=== PATIENT | male | born 1985 | race African-American/Black ===

== ENCOUNTER 2018-10-10 13:26 | Emergency (ER) | payer BC ==
[2018-10-10] MEDS ORDERED: KETOROLAC 30 MG/ML INJ ONE (14:39)
--- NOTE | 2018-10-10 15:04 | RAD REPORT ---
EXAM DESCRIPTION: USExtremcody Venous Uni Ltd10/10/2018 2:54 pm CLINICAL HISTORY: left leg swelling. COMPARISON: None. FINDINGS: Left common femoral, superficial femoral, popliteal and posterior tibial veins are compre ssible and demonstrate augmentation. Doppler demonstrates good flow. 3 x 0.5 centimeter Ovalles's cyst IMPRESSION: No evidence of deep venous thrombosis involving the left lower extremity.
--- NOTE | 2018-10-10 15:17 | RAD REPORT ---
EXAM DESCRIPTION: RAD - Knee Left 3 View - 10/10/2018 3:02 pm CLINICAL HISTORY: Left knee pain status post injury FINDINGS: Postsurgical changes of an ACL repair No acute fracture or dislocation Moderate to large joint effusion is present
[2018-10-10] MEDS ORDERED: HYDROCODONE/APAP 5/325 MG TAB ONE (15:36)
--- NOTE | 2018-10-10 15:49 | ER ---
Nurse's Notes [facility] Name: Beto Nava Age: 32 yrs Sex: Male : 1985 Arrival Date: 10/10/2018 Time: 13:29 Bed 23 Private MD: None, None Diagnosis: Internal derangement of knee;Synovial cyst of popliteal space [Ovalles], left knee Presentation: 10/10 13:43 Presenting complaint: Patient states: hx of torn ACL in left knee, re-injured knee on iw Wednesday while playing softball, left knee swollen and can't bend knee. Transition of care: patient was not received from another setting of care. Onset of symptoms was October 08, 2018. Risk Assessment: Do you want to hurt yourself or someone else? Patient reports no desire to harm self or others. Initial Sepsis Screen: Does the patient meet any 2 criteria? No. Patient's initial sepsis screen is negative. Does the patient have a suspected source of infection? No. Patient's initial sepsis screen is negative. Care prior to arrival: None. 13:43 Method Of Arrival: Wheelchair iw 13:43 Acuity: LISA 4 iw Triage Assessment: 13:58 General: Appears in no apparent distress. comfortable, Behavior is calm, cooperative, ca1 appropriate for age. Injury Description:. Historical: - Allergies: 13:46 No Known Allergies; iw - Home Meds: 13:46 None [Active]; iw - PMHx: 13:46 None; iw - PSHx: 13:46 Knee surgery; iw - Immunization history:: Adult Immunizations not up to date. - Social history:: Smoking status: Patient uses tobacco products, smokes one-half pack cigarettes per day. - Ebola Screening: : Patient negative for fever greater than or equal to 101.5 degrees Fahrenheit, and additional compatible Ebola Virus Disease symptoms Patient denies exposure to infectious person Patient denies travel to an Ebola-affected area in the 21 days before illness onset No symptoms or risks identified at this time. Screenin:55 Abuse screen: Denies threats or abuse. Denies injuries from another. Nutritional ca1 screening: No deficits noted. Tuberculosis screening: No symptoms or risk factors identified. Fall Risk None identified. Assessment: 13:55 General: Appears in no apparent distress. comfortable, Behavior is calm, cooperative, ca1 appropriate for age. Pain: Complains of pain in left knee Pain does not radiate. Pain currently is 10 out of 10 on a pain scale. Pain began 2-3 days ago. Is continuous, Aggravated by increased activity, repositioning, weight bearing. Neuro: Level of Consciousness is awake, alert, obeys commands, Oriented to person, place, time, situation. Respiratory: Airway is patent Respiratory effort is even, unlabored, Respiratory pattern is regular, symmetrical, Breath sounds are clear bilaterally. Derm: Skin is intact, is healthy with good turgor, Skin is pink, warm \T\ dry. normal. Musculoskeletal: Circulation, motion, and sensation intact. Capillary refill < 3 seconds, Range of motion: limited in left knee. 14:50 Reassessment: Patient appears in no apparent distress at this time. Patient and/or ca1 family updated on plan of care and expected duration. Pain level reassessed. Patient is alert, oriented x 3, equal unlabored respirations, skin warm/dry/pink. 15:50 Reassessment: Patient appears in no apparent distress at this time. Patient is alert, ca1 oriented x 3, equal unlabored respirations, skin warm/dry/pink. 16:15 Reassessment: Patient states feeling better. mg2 Vital Signs: 13:46 BP 112 / 71; Pulse 106; Resp 18 S; Temp 98.2; Pulse Ox 100% on R/A; Weight 117.93 kg; iw Height 6 ft. 4 in. (193.04 cm); Pain 10/10; 14:50 BP 133 / 88; Pulse 108; Resp 18 S; Pulse Ox 99% on R/A; ca1 15:50 BP 131 / 77; Pulse 107; Resp 18 S; Temp 98(O); Pulse Ox 98% on R/A; ca1 16:16 BP 130 / 78; Pulse 98; Resp 18; Temp 98; Pulse Ox 100% on R/A; Pain 4/10; mg2 13:46 Body Mass Index 31.65 (117.93 kg, 193.04 cm) iw ED Course: 13:29 Patient arrived in ED. tw3 13:29 None, None is Private Physician. tw3 13:45 Triage completed. iw 13:46 Arm band placed on. iw 13:51 Ivan Chavez PA is PHCP. jmm 13:51 Jaden Alba MD is Attending Physician. [facility] 13:52 Purnima Prasad, RN is Primary Nurse. ca1 13:55 Patient has correct armband on for positive identification. Bed in low position. Call ca1 light in reach. Side rails up X 1. Pulse ox on. NIBP on. Warm blanket given. 13:55 No provider procedures requiring assistance completed. ca1 14:57 US Extremity Venous Unilateral Ltd In Process Unspecified. EDMS 15:03 Knee Left 3 View XRAY In Process Unspecified. EDMS 15:48 Ko Hackett MD is Referral Physician. [facility] 16:16 Patient did not have IV access during this emergency room visit. Knee immobilizer mg2 applied on left knee. Administered Medications: 14:28 Drug: Ketorolac 30 mg Route: IM; Site: right deltoid; ca1 15:44 Follow up: Response: No adverse reaction mg2 15:31 Drug: Liebenthal 5 mg-325 mg 1 tabs Route: PO; mg2 16:15 Follow up: Response: No adverse reaction; Marked relief of symptoms mg2 Outcome: 15:49 Discharge ordered by MD. [facility] 16:16 Discharged to home ambulatory. mg2 16:16 Condition: stable 16:16 Discharge instructions given to patient, Instructed on discharge instructions, follow up and referral plans. medication usage, Demonstrated understanding of instructions, follow-up care, medications, Prescriptions given X 2. 16:17 Patient left the ED. mg2 Signatures: Dispatcher [employer] EDMS Ivan Chavez PA PA jmm Williams, Irene, RN RN iw Luis E, Elba tw3 Berny Walker RN RN mg2 Purnima Prasad RN RN ca1 Corrections: (The following items were deleted from the chart) 15:50 14:50 Reassessment: Patient appears in no apparent distress at this time. Patient is ca1 alert, oriented x 3, equal unlabored respirations, skin warm/dry/pink. ca1
--- NOTE | 2018-10-10 15:49 | EDPHYS ---
Physician Documentation [facility] Name: Beto Nava Age: 32 yrs Sex: Male : 1985 Arrival Date: 10/10/2018 Time: 13:29 Bed 23 Private MD: None, None ED Physician Jaden Alba HPI: 10/10 13:55 This 32 yrs old Black Male presents to ER via Wheelchair with complaints of Knee Injury.jmm 13:55 The patient presents with an injury, pain, that is acute, swelling. Onset: The jmm symptoms/episode began/occurred acutely, 2 day(s) ago. Modifying factors: The symptoms are alleviated by elevating leg, the symptoms are aggravated by movement, bending knee. Associated signs and symptoms: Pertinent positives: swelling, Pertinent negatives fever, numbness. This is a 32 year old male with no chronic medical conditions that presents to the ED with complaints of pain to his left knee. patient states that he felt a pop as he was playing softball this past Wednesday. Patient states he did not feel much pain at the time but has developed increased pain and swelling since. patient denies any other known injury. . Historical: - Allergies: 13:46 No Known Allergies; iw - Home Meds: 13:46 None [Active]; iw - PMHx: 13:46 None; iw - PSHx: 13:46 Knee surgery; iw - Immunization history:: Adult Immunizations not up to date. - Social history:: Smoking status: Patient uses tobacco products, smokes one-half pack cigarettes per day. - Ebola Screening: : Patient negative for fever greater than or equal to 101.5 degrees Fahrenheit, and additional compatible Ebola Virus Disease symptoms Patient denies exposure to infectious person Patient denies travel to an Ebola-affected area in the 21 days before illness onset No symptoms or risks identified at this time. ROS: 13:55 Constitutional: Negative for fever, chills, and weight loss, Cardiovascular: Negative jmm for chest pain, palpitations, and edema, Respiratory: Negative for shortness of breath, cough, wheezing, and pleuritic chest pain. 13:55 MS/extremity: Positive for injury or acute deformity, pain, swelling. 13:55 All other systems are negative. Exam: 13:55 Constitutional: This is a well developed, well nourished patient who is awake, alert, jmm and in no acute distress. Head/Face: atraumatic. Eyes: EOMI, no conjunctival erythema appreciated ENT: Moist Mucus Membranes Neck: Trachea midline, Supple Chest/axilla: Normal chest wall appearance and motion. Cardiovascular: Regular rate and rhythm. No edema appreciated Respiratory: Normal respirations, no respiratory distress appreciated Abdomen/GI: Non distended, soft Back: Normal ROM Skin: General appearance color normal 13:55 Musculoskeletal/extremity: swelling noted to the left knee, popliteal tenderness on palpation, compartments are soft, full dorsalis pulse, NVI. 13:55 Skin: Appearance: Color: normal in color. 13:55 Neuro: Orientation: is normal, Mentation: is normal, Memory: is normal. 13:55 Psych: Behavior/mood is pleasant, cooperative. Vital Signs: 13:46 BP 112 / 71; Pulse 106; Resp 18 S; Temp 98.2; Pulse Ox 100% on R/A; Weight 117.93 kg; iw Height 6 ft. 4 in. (193.04 cm); Pain 10/10; 14:50 BP 133 / 88; Pulse 108; Resp 18 S; Pulse Ox 99% on R/A; ca1 15:50 BP 131 / 77; Pulse 107; Resp 18 S; Temp 98(O); Pulse Ox 98% on R/A; ca1 16:16 BP 130 / 78; Pulse 98; Resp 18; Temp 98; Pulse Ox 100% on R/A; Pain 4/10; mg2 13:46 Body Mass Index 31.65 (117.93 kg, 193.04 cm) iw MDM: 13:55 Patient medically screened. [facility] 15:48 Data reviewed: vital signs, nurses notes. Counseling: I had a detailed discussion with [facility] the patient and/or guardian regarding: the historical points, exam findings, and any diagnostic results supporting the discharge/admit diagnosis, radiology results, the need for outpatient follow up, to return to the emergency department if symptoms worsen or persist or if there are any questions or concerns that arise at home. 10/10 14:15 Order name: Knee Left 3 View XRAY; Complete Time: 15:20 [facility] 10/10 14:15 Order name: US Extremity Venous Unilateral Ltd; Complete Time: 15:07 [facility] 10/10 15:21 Order name: Knee Immobilizer; Complete Time: 15:44 [facility] Administered Medications: 14:28 Drug: Ketorolac 30 mg Route: IM; Site: right deltoid; ca1 15:44 Follow up: Response: No adverse reaction mg2 15:31 Drug: [place]zuma 5 mg-325 mg 1 tabs Route: PO; mg2 16:15 Follow up: Response: No adverse reaction; Marked relief of symptoms mg2 Disposition: 10/10/18 15:49 Discharged to Home. Impression: Internal derangement of knee, Synovial cyst of popliteal space [Ovalles], left knee. - Condition is Stable. - Discharge Instructions: Ovalles Cyst, Knee Pain. - Prescriptions for Ibuprofen 800 mg Oral Tablet - take 1 tablet by ORAL route every 8 hours As needed take with food; 30 tablet. Ultracet 37.5- 325 mg Oral Tablet - take 1 tablet by ORAL route every 6 hours - for up to 5 days; do not exceed 8 tablets per day.; 12 tablet. - Medication Reconciliation Form, Thank You Letter, Antibiotic Education, Prescription Opioid Use, Work release form form. - Follow up: Ko Hackett MD; When: 2 - 3 days; Reason: Recheck today's complaints, Continuance of care, Re-evaluation by your physician. Addendum: 10/17/2018 12:36 Co-signature as Attending Physician, Jaden Alba MD I agree with the assessment and c blanc plan of care. Signatures: Dispatcher [employer] EDJaden Owen MD MD cha Mickail, Joel, PA PA [facility] Abimbola Morris RN RN Berny Walker RN RN mg2 Purnima Prasad RN RN ca1 Corrections: (The following items were deleted from the chart) 10/10 16:17 15:49 10/10/2018 15:49 Discharged to Home. Impression: Internal derangement of knee; mg2 Synovial cyst of popliteal space [Ovalles], left knee. Condition is Stable. Forms are Medication Reconciliation Form, Thank You Letter, Antibiotic Education, Prescription Opioid Use. Follow up: Ko Hackett; When: 2 - 3 days; Reason: Recheck today's complaints, Continuance of care, Re-evaluation by your physician. [facility]
[2018-10-10 22:04] VITALS: BP 130/78; TEMP 98; O2SAT 100
== END 2018-10-10 16:17 | disposition home or self-care (01) ==
LOC: ER 13:26
DX: M23.92 Unspecified internal derangement of left knee (principal); M71.22 Synovial cyst of popliteal space [Baker], left knee; F17.210 Nicotine dependence, cigarettes, uncomplicated
CPT/HCPCS: 93971; 96372; 99284

== ENCOUNTER 2020-02-25 13:04 | Emergency (ER) | payer BC ==
--- OUTSIDE RECORDS SUMMARY | 2020-02-25 13:06 | XMS REPORT | Summary of Care ---
:1985 Author Organization [facility] - Health Address [address] [place] [address] Care Team Providers Name Role Phone Pcp, Does Not Have A Primary Care Provider Encounter Details Date Type Department Care Team Description 12/01/2019 Letter (Out) [facility] Plex[facility] Message s Doctor Unassigned, No [address] [facility] [place] [address] [address] [facility] [phone] [place] [address] Allergies Not on Filedocumented as of this encounter (statuses as of 12/01/2019) Medications Not on filedocumented as of this encounter (statuses as of 12/01/2019) Active Problems Not on filedocumented as of this encounter (statuses as of 12/01/2019) Social History Tobacco Use Types Packs/Day Years Used Date Never Assessed Sex Assigned at Date Recorded Not on file Job Start Date Occupation Industry Not on file Not on file Not on file Travel History Travel Start Travel End No recent travel history available. documented as of this encounter Last Filed Vital Signs Not on filedocumented in this encounter Plan of Treatment Health Maintenance Due Date Last Done Comments VARICELLA VACCINES (1 of 2 - 1985 2-dose childhood series) DTaP,Tdap,and Td Vaccines (1 - 11/26/1995 Tdap) Depression Screening 1996 INFLUENZA VACCINE (#1) 2020 PNEUMOCOCCAL 0-64 YEARS COMBINED Aged Out No longer eligible based on SERIES patient's age to complete this topic documented as of this encounter Results Not on filedocumented in this encounter Insurance Payer Benefit Plan Subscriber ID Effective Dates Phone Address Type / Group [facility]BS [facility] [id number] 2019-Taya [phone] [address] PPO/POS [place] - OUT OF t 7 [id number] [place] [address] documented as of this encounter
--- OUTSIDE RECORDS SUMMARY | 2020-02-25 13:06 | XMS REPORT | Continuity of Care Document ---
:1985 Author Organization [facility] t Address [address] [place] [address] Care Team Providers Name Role Phone Lab, Fam Pob I Attending Clinician Unavailable Doctor Unassigned, Name Attending Clinician Unavailable Problems Condition Condition Condition Status Onset Resolution Last Treating Co mments Source Name Details Category Date Date Treatment Clinician Date Pain, Pain, Problem Active [facility] - knee, left knee, left Me moria l Outpati ent Clinics Gastroesop Gastroesop Problem Active [facility] hageal hageal [facility] - reflux reflux Memoria disease disease l with with Outpati esophagiti esophagiti en t s s Clinics Internal Internal Problem Active [facility] derangemen derangemen Teresa kes - t of left t of left Seth michele knee knee l Outpati ent Clinics Strain of Strain of Problem Active [facility] left knee, left knee, Teresa kes - initial initial Memoria encounter encounter l Outpati ent Clinics Effusion, Effusion, Problem Active [facility] left knee left knee Luke s - Memoria l Outpati ent Clinics Constipati Constipati Problem Active [facility] on, on, [facility] - unspecifie unspecifie Me moria d d l constipati constipati Ou tpati on type on type ent Clinics Gastroesop Gastroesop Problem Active [facility] hageal hageal [facility] - reflux reflux Memoria disease, disease, l esophagiti esophagiti Ou tpati s presence s presence en t not not Clinics specified specified Cigarette Cigarette Problem Active [facility] nicotine nicotine [facility] - dependence dependence Me moria without without l complicati complicati Ou tpati on on ent Clinics Allergies, Adverse Reactions, Alerts This patient has no known allergies or adverse reactions. Medications Ordered Filled Start Stop Current Ordering Indication Dosage Frequency Signature Comments Components Source Medication Medication Date Date Medication? Clinician (SIG) Name Name Tramadol Tramadol 2018- No Ko Waller HCl HCl 10-21 Hackett directed [facility] - 00:00: 00:00 Memoria 00 :00 [facility] Procedures This patient has no known procedures. Encounters Start End Encounter Admission Attending Care Care Encounter Source Date/Time Date/Time Type Type Clinicians Facility Department ID 2019-12-01 2019-12-01 Laboratory Lab, [facility] [id number] 08:00:54 08:20:54 Only Fam Pob I Health [id number] [place] [id number] Professio [phone] [address]al [address] 2019-12-01 2019-12-01 Letter Doctor JAH [id number] 00:00:00 00:00:00 (Out) Unassigned, PURA [id number] [place] [facility] [id number] 2018-11-18 2018-11-18 [facility] [id number] [facility] 09:00:00 09:00[facility]00 [facility] 2018-10-21 2018-10-21 [facility] [id number] 09:00:00 09:00:00 [facility] 2018-10-17 2018-10-17 [facility] [id number] 10:30:00 10:30:00 [facility] Results This patient has no known results.
--- OUTSIDE RECORDS SUMMARY | 2020-02-25 13:06 | XMS REPORT | Summary of Care ---
:1985 Author Organization [facility] Address [address] [place] [id number] Care Team Providers Name Role Phone Pcp, Does Not Have A Primary Care Provider Reason for Visit Reason Comments Exposure Lab Results Encounter Details Date Type Department Care Team Description 12/01/2019 Laboratory Only [facility] Family NujuanAlfred, IMPREGNATOR AND DRIER HELPER [address] [place] [address] Suspected 2019 [facility], Adc Fam Pob I Coronavirus [address] [facility] Infection ([address] Dx) [place] [address] Allergies Not on Filedocumented as of this [...] filedocumented in this encounter Plan of Treatment Name Type Priority Associated Diagnoses Order S chedule COVID-19 (PCR MOLECULAR LAB Routine Suspected 2019 No ashley Ordered: 12/01/2019 TESTING) Coronavirus Infection Health Maintenance Due Date Last Done Comments VARICELLA VACCINES (1 of 2 - 1985 2-dose childhood series) DTaP,Tdap,and Td Vaccines (1 - 11/26/1995 Tdap) Depression Screening 1996 INFLUENZA VACCINE (#1) 2020 PNEUMOCOCCAL 0-64 YEARS COMBINED Aged Out No longer eligible based on SERIES patient's age to complete this topic documented as of this encounter Results Not on filedocumented in this encounter Visit Diagnoses Diagnosis Suspected 2018 Novel Coronavirus Infecti on - Primary documented in this encounter Insurance Payer Benefit Plan Subscriber ID Effective Dates Phone Address Type / Group [facility] [id number] 2019-Taya [phone] [address] PPO/POS [place] - OUT OF t 7 [id number] [place] [address] documented as of this encounter
[2020-02-25] MEDS ORDERED: NA CHLORIDE 0.9% 1,000 ML ONE (13:32)
[2020-02-25] MEDS ORDERED: MORPHINE 4 MG/ML SYR ONE (13:32)
[2020-02-25] MEDS ORDERED: ONDANSETRON 4 MG/2 ML VIAL ONE ×2 (13:32→14:20)
[2020-02-25 13:47] LABS: Absolute Lymphocytes (CBC) 1.5 K/uL (0.7-4.9); Basophils % 1.4 % (0-1.3); Hematocrit 42.9 % (39.6-49.0); Lymphocytes % 19.5 % (15.3-44.8); MPV 8.3 fL (7.6-11.3); RBC Red Blood Cell Count 5.88 M/uL (4.33-5.43)
[2020-02-25 13:52] LABS: Albumin 4.4 g/dL (3.4-5.0); Bilirubin Direct 0.1 mg/dL (0-0.2); Bilirubin Total 0.7 mg/dL (0.2-1.0); Potassium 4.1 mmol/L (3.5-5.1); Protein, Total 8.4 g/dL (6.4-8.2)
--- NOTE | 2020-02-25 15:03 | RAD REPORT ---
EXAM DESCRIPTION: CT - Abdomen Pelvis W Contrast - 02/25/2020 2:41 pm CLINICAL HISTORY: ABD PAIN COMPARISON: Abdomen Pelvis W Contrast dated 07/16/2016 TECHNIQUE: Biphasic, helical CT imaging of the abdomen and pelvis was performed following 100 ml non -ionic IV contrast. Oral contrast was given. All CT scans are performed using dose optimization technique as appropriate and may include automated exposure control or mA/KV adjustment according to patient size. FINDINGS: No suspicious findings in the lung bases. The liver, spleen, and pancreas show no suspicious findings. Gallbladder and biliary tree are also wi thout suspicious finding. Symmetric renal function is seen with no hydronephrosis or suspicious renal mass. No pyelonephritis o r acute parenchymal process. No bladder abnormalities. No adrenal abnormalities. No dilated bowel loops or bowel wall thickening. Appendix is normal. No free air, free fluid or infl ammatory stranding. No hernia, mass or bulky lymphadenopathy. No suspicious bony findings. IMPRESSION: Contrast enhanced CT abdomen and pelvis showing no significant or suspicious finding.
[2020-02-25 15:26] LABS: Barbiturates NEGATIVE (NEGATIVE); Benzodiazepines NEGATIVE (NEGATIVE); Cocaine NEGATIVE (NEGATIVE); METHAMPHETAM NEGATIVE (NEGATIVE); Methadone NEGATIVE (NEGATIVE); Opiates POSITIVE (NEGATIVE); Phencyclidine NEGATIVE (NEGATIVE); THC Cannibis POSITIVE (NEGATIVE)
[2020-02-25 15:31] LABS: Urine Blood NEGATIVE (NEG); Urine Glucose NEGATIVE (NEG); Urine Protein 1+ (NEG); Urine pH >8.5 (5.0-7.0)
[2020-02-25] MEDS ORDERED: PROMETHAZINE INJ 25 MG/ML AMP ONE ×2 (15:56→16:54)
[2020-02-25] MEDS ORDERED: KETOROLAC 30 MG/ML INJ ONE (15:56)
--- NOTE | 2020-02-25 16:25 | EDPHYS ---
Physician Documentation [facility] Name: Beto Nava Age: 34 yrs Sex: Male : 1985 Arrival Date: 02/25/2020 Time: 13:07 Bed 5 Private MD: ED Physician Frank Beltran HPI: 02/24 13:13 This 34 yrs old Black Male presents to ER via Wheelchair with complaints of Abdominal pm1 Pain, Vomiting/Diarrhea. 13:13 The patient presents with abdominal pain in the left lower quadrant. Onset: The pm1 symptoms/episode began/occurred last night. The symptoms do not radiate. Associated signs and symptoms: Pertinent positives: nausea, vomiting, and diarrhea. The symptoms are described as constant, crampy. Modifying factors: The symptoms are alleviated by nothing, the symptoms are aggravated by Possibly from alcohol. Severity of pain: in the emergency department the pain is actually worse. The patient has not experienced similar symptoms in the past. The patient has not recently seen a physician. Patient reports onset after drinking liquor last night. Historical: - Allergies: 13:18 No Known Allergies; ll1 - PSHx: 13:18 Knee surgery; ll1 - Immunization history:: Flu vaccine status is unknown. - Social history:: Smoking status: Patient reports the use of cigarette tobacco products, smokes one-half pack cigarettes per day. ROS: 13:13 Constitutional: Negative for fever, chills, and weight loss, Neck: Negative for injury, pm1 pain, and swelling, Cardiovascular: Negative for chest pain, palpitations, and edema, Respiratory: Negative for shortness of breath, cough, wheezing, and pleuritic chest pain. 13:13 Back: Negative for injury and pain, : Negative for injury, bleeding, discharge, and swelling, MS/Extremity: Negative for injury and deformity, Skin: Negative for injury, rash, and discoloration, Neuro: Negative for headache, weakness, numbness, tingling, and seizure. 13:13 Abdomen/GI: Positive for abdominal pain, nausea, vomiting, and diarrhea, Negative for constipation. Exam: 13:13 Constitutional: This is a well developed, well nourished patient who is awake, alert, pm1 and in no acute distress. Head/Face: Normocephalic, atraumatic. Neck: Trachea midline, no thyromegaly or masses palpated, and no cervical lymphadenopathy. Supple, full range of motion without nuchal rigidity, or vertebral point tenderness. No Meningismus. 13:13 Back: No spinal tenderness. No costovertebral tenderness. Full range of motion. Skin: Warm, dry with normal turgor. Normal color with no rashes, no lesions, and no evidence of cellulitis. MS/ Extremity: Pulses equal, no cyanosis. Neurovascular intact. Full, normal range of motion. 13:13 Cardiovascular: Exam negative for acute changes, Rate: normal, Rhythm: regular, Pulses: no pulse deficits are appreciated. 13:13 Respiratory: Exam negative for acute changes, respiratory distress, shortness of breath, wheezing. 13:13 Abdomen/GI: Inspection: abdomen appears normal, Palpation: soft, in all quadrants, mild abdominal tenderness, in the left lower quadrant, mass, is not appreciated, rebound tenderness, is not appreciated. 13:13 Neuro: Exam negative for acute changes, Orientation: is normal, Mentation: is normal, Motor: is normal, moves all fours. Vital Signs: 13:16 BP 167 / 83; Pulse 85; Resp 19; Temp 97.1; Pulse Ox 100% ; Pain 8/10; ll1 16:34 BP 161 / 79; Pulse 84; Resp 18; Pulse Ox 99% on R/A; Pain 0/10; em MDM: 13:09 Patient medically screened. pm1 13:54 Data reviewed: vital signs. Data interpreted: Pulse oximetry: on room air is 100 %. pm1 Interpretation: normal. 15:48 Counseling: I had a detailed discussion with the patient and/or guardian regarding: the pm1 historical points, exam findings, and any diagnostic results supporting the discharge/admit diagnosis, lab results, radiology results, the need for outpatient follow up, Cessation of alcohol and drug abuse. 02/24 13:13 Order name: Basic Metabolic Panel; Complete Time: 13:55 pm1 02/24 13:13 Order name: CBC with Diff; Complete Time: 13:50 pm1 02/24 13:13 Order name: Hepatic Function; Complete Time: 13:55 pm1 02/24 13:13 Order name: Lipase; Complete Time: 13:55 pm1 02/24 13:13 Order name: ETOH Level; Complete Time: 14:29 pm1 02/24 15:01 Order name: Urine Dipstick--Ancillary (enter results); Complete Time: 15:32 eb 02/24 13:13 Order name: CT Abd/Pelvis - IV Contrast Only; Complete Time: 15:05 pm1 02/24 15:03 Order name: UDS; Complete Time: 15:32 dh3 02/24 13:13 Order name: IV Saline Lock; Complete Time: 13:30 pm1 02/24 13:13 Order name: Labs collected and sent; Complete Time: 13:30 pm1 02/24 13:13 Order name: Urine Dipstick-Ancillary (obtain specimen); Complete Time: 14:49 pm1 Administered Medications: 13:30 Drug: NS 0.9% 1000 ml Route: IV; Rate: 1000 ml; Site: right antecubital; em 13:30 Drug: Zofran (Ondansetron) 4 mg Route: IVP; Site: right antecubital; em 14:00 Follow up: Response: No adverse reaction em 13:32 Drug: morphine 4 mg Route: IVP; Site: right antecubital; em 14:10 Follow up: Response: No adverse reaction; Marked relief of symptoms; Pain is decreased em 14:09 Drug: Zofran (Ondansetron) 4 mg Route: IVP; Site: right antecubital; em 15:20 Follow up: Response: No adverse reaction; No change in condition em 15:47 Drug: Phenergan 12.5 mg Route: IVP; Site: right antecubital; em 16:30 Follow up: Response: No adverse reaction; No change in condition em 15:49 Drug: TORadol 30 mg Route: IVP; Site: right antecubital; em 16:30 Follow up: Response: No adverse reaction; Marked relief of symptoms; Pain is decreased em 16:46 Drug: Phenergan 12.5 mg Route: IVP; Site: right antecubital; em 17:04 Follow up: Response: No adverse reaction; Marked relief of symptoms; Nausea is decreasedem Disposition: 18:56 Co-signature as Attending Physician, Frank Beltran MD. rn Disposition: 02/25/20 16:24 Discharged to Home. Impression: Unspecified abdominal pain, Vomiting, Diarrhea, unspecified, Cannabis abuse. - Condition is Stable. - Discharge Instructions: Abdominal Pain, Adult, Diarrhea, Adult, Cannabis Use Disorder, Nausea and Vomiting, Adult. - Prescriptions for Bentyl 20 mg Oral Tablet - take 1 tablet by ORAL route every 6 hours As needed; 20 tablet. Phenergan 25 mg Rectal Suppository - insert 1 suppository by RECTAL route every 6 hours As needed; 12 suppository. promethazine 25 mg Oral Tablet - take 1 tablet by ORAL route every 6 hours As needed; 20 tablet. - Work release form, Medication Reconciliation Form, Thank You Letter, Antibiotic Education, Prescription Opioid Use form. - Follow up: Emergency Department; When: As needed; Reason: Worsening of condition. Follow up: Private Physician; When: 2 - 3 days; Reason: Recheck today's complaints, Continuance of care, Re-evaluation by your physician. - Problem is new. - Symptoms have improved. Signatures: Dispatcher [employer] Cr Velasco, RN RN Frank Cage MD MD rn Marinas, Patrick, BIZTALK ARCHITECT BIZTALK ARCHITECT pm1 Jayla Goetz RN RN ll1 Corrections: (The following items were deleted from the chart) 17:04 16:24 02/25/2020 16:24 Discharged to Home. Impression: Unspecified abdominal pain; em Vomiting; Diarrhea, unspecified; Cannabis abuse. Condition is Stable. Forms are Medication Reconciliation Form, Thank You Letter, Antibiotic Education, Prescription Opioid Use. Follow up: Emergency Department; When: As needed; Reason: Worsening of condition. Follow up: Private Physician; When: 2 - 3 days; Reason: Recheck today's complaints, Continuance of care, Re-evaluation by your physician. Problem is new. Symptoms have improved. pm1
--- NOTE | 2020-02-25 16:25 | ER ---
Nurse's Notes [facility] Name: Beto Nava Age: 34 yrs Sex: Male : 1985 Arrival Date: 02/25/2020 Time: 13:07 Bed 5 Private MD: Diagnosis: Unspecified abdominal pain;Vomiting;Diarrhea, unspecified;Cannabis abuse Presentation: 02/24 13:16 Chief complaint: Patient states: Abdominal pain with N/V/D since last night. Started ll1 after drinking some liquor. No fever. States, "I'll answers all your questions when I feel better.". Coronavirus screen: Client denies travel out of the [place] in the last 14 days. diarrhea, fatigue, nausea, vomiting. Client presents with at least one sign or symptom that may indicate coronavirus-19. Standard/surgical mask placed on the client. Ebola Screen: Patient denies travel to an Ebola-affected area in the 21 days before illness onset. Initial Sepsis Screen: Does the patient meet any 2 criteria? No. Patient's initial sepsis screen is negative. Does the patient have a suspected source of infection? Yes: Acute abdominal pain. Risk Assessment: Do you want to hurt yourself or someone else? Patient reports no desire to harm self or others. Onset of symptoms was February 24, 2020. 13:16 Method Of Arrival: Wheelchair ll1 13:16 Acuity: LISA 3 ll1 Historical: - Allergies: 13:18 No Known Allergies; ll1 - PSHx: 13:18 Knee surgery; ll1 - Immunization history:: Flu vaccine status is unknown. - Social history:: Smoking status: Patient reports the use of cigarette tobacco products, smokes one-half pack cigarettes per day. Screenin:11 Abuse screen: Denies threats or abuse. Nutritional screening: No deficits noted. em Tuberculosis screening: No symptoms or risk factors identified. Fall Risk None identified. Assessment: 13:20 General: Appears in no apparent distress. uncomfortable, Behavior is calm, cooperative, em appropriate for age, Reports chills for 0-12 hours, Denies fever. Pain: Complains of pain in left lower quadrant Pain currently is 8 out of 10 on a pain scale. Pain began this morning. Neuro: Level of Consciousness is awake, alert, obeys commands, Oriented to person, place, time, situation, Appropriate for age. Cardiovascular: Capillary refill < 3 seconds Patient's skin is warm and dry. Respiratory: Airway is patent Respiratory effort is even, unlabored, Respiratory pattern is regular, symmetrical. GI: Abdomen is flat, Bowel sounds present X 4 quads. Abd is soft and non tender X 4 quads. Reports nausea, vomiting. Derm: Skin is intact, is healthy with good turgor, Skin is pink, warm \\T\\ dry. Musculoskeletal: Capillary refill < 3 seconds, Range of motion: intact in all extremities. 14:00 Reassessment: reports nausea, pt currently vomiting, provider notified, received new em medication orders. 14:30 Reassessment: Patient and/or family updated on plan of care and expected duration. Pain em level reassessed. Patient states symptoms have not improved. 15:30 Reassessment: Patient appears in no apparent distress at this time. Patient and/or em family updated on plan of care and expected duration. Pain level reassessed. Patient is alert, oriented x 3, equal unlabored respirations, skin warm/dry/pink. 16:38 Reassessment: reports pain is better, nausea is unchanged, provider notified. em Vital Signs: 13:16 BP 167 / 83; Pulse 85; Resp 19; Temp 97.1; Pulse Ox 100% ; Pain 8/10; ll1 16:34 BP 161 / 79; Pulse 84; Resp 18; Pulse Ox 99% on R/A; Pain 0/10; em ED Course: 13:07 Patient arrived in ED. mr 13:08 Alberto Arana, INÉS is PHCP. pm1 13:08 Frakn Beltran MD is Attending Physician. pm1 13:11 Cr Black, RN is Primary Nurse. em 13:11 Patient has correct armband on for positive identification. Placed in gown. Bed in low em position. Call light in reach. Pulse ox on. NIBP on. 13:18 Triage completed. ll1 14:40 CT Abd/Pelvis - IV Contrast Only In Process Unspecified. EDMS 15:08 UDS Sent. dh3 Administered Medications: 13:30 Drug: NS 0.9% 1000 ml Route: IV; Rate: 1000 ml; Site: right antecubital; em 13:30 Drug: Zofran (Ondansetron) 4 mg Route: IVP; Site: right antecubital; em 14:00 Follow up: Response: No adverse reaction em 13:32 Drug: morphine 4 mg Route: IVP; Site: right antecubital; em 14:10 Follow up: Response: No adverse reaction; Marked relief of symptoms; Pain is decreased em 14:09 Drug: Zofran (Ondansetron) 4 mg Route: IVP; Site: right antecubital; em 15:20 Follow up: Response: No adverse reaction; No change in condition em 15:47 Drug: Phenergan 12.5 mg Route: IVP; Site: right antecubital; em 16:30 Follow up: Response: No adverse reaction; No change in condition em 15:49 Drug: TORadol 30 mg Route: IVP; Site: right antecubital; em 16:30 Follow up: Response: No adverse reaction; Marked relief of symptoms; Pain is decreased em 16:46 Drug: Phenergan 12.5 mg Route: IVP; Site: right antecubital; em 17:04 Follow up: Response: No adverse reaction; Marked relief of symptoms; Nausea is decreasedem Outcome: 16:24 Discharge ordered by pm1 17:04 Patient left the ED. em Signatures: Dispatcher [employer] Demi Smiley Edgar RN Alberto Nuno NP PRODUCER pm1 Zoraida Mallory 3 Jayla Goetz RN RN 1
[2020-02-25 17:09] VITALS: TEMP 97.1
[2020-02-25 17:11] VITALS: BP 161/79; O2SAT 99
== END 2020-02-25 17:04 | disposition home or self-care (01) ==
LOC: ER 13:04
DX: R11.10 Vomiting, unspecified (principal); F12.10 Cannabis abuse, uncomplicated; R19.7 Diarrhea, unspecified; F17.210 Nicotine dependence, cigarettes, uncomplicated
CPT/HCPCS: 85025; 80048; 36415; 80320; 80076; 80307 ×8; 81003; 83690; 74177; 96375; 96374; 99284; Q9967; J2550 ×2; J7030; J2405 ×2

== ENCOUNTER 2024-01-08 15:52 | Inpatient (IN) | payer SELFPAY ==
--- OUTSIDE RECORDS SUMMARY | 2024-01-08 15:55 | XMS REPORT | Continuity of Care Document ---
Author Name Unknown Address [address] [place] [address] [facility] thconnect Address [address] [place] [address] Care Team Providers Care Hoof Trimmer Name Role Phone Pcp, Patient Does Not Have A Primary Care Physic kath Jad Whyte MD Attending Clinician JAD WHYTE Attending Clinician Unavailable Doctor Unassigned, Boaz Attending Clinician U MAVERICK Hurt Attending Clinician Unavailable Lab, Adc Fam Pob I Attending Clinician Unavailab Kirsty Parra Attending Clinician KIRSTY SERVIN Attending Clinician Unavailable Payers Payer Name Policy Type Policy Number Effective Date Expirati on Date Source [employer] [place] [id number] 2019 00:00:00 Problems Condition Name Condition Details Condition Category Status Onset Date Resolution Date Last Treatment Date Treating Clinician Comments Source Pain, joint, knee, left Pain, joint, knee, left Problem Active [facility] Gastroesop hageal reflux disease with esophagiti s Gastroesop hageal reflux disease with esophagiti s Problem Active [facility] Internal derangemen t of left knee Internal derangemen t of left knee Problem Active [facility] Strain of left knee, initial encounter Strain of left knee, initial encounter Problem Active [facility] Effusion, left knee Effusion, left knee Problem Active [facility] Constipati on, unspecifie d constipati on type Constipati on, unspecifie d constipati on type Problem Active [facility] Gastroesop hageal reflux disease, esophagiti s presence not specified Gastroesop hageal reflux disease, esophagiti s presence not specified Problem Active [facility] Cigarette nicotine dependence without complicati on Cigarette nicotine dependence without complicati on Problem Active [facility] No known active problems No known active problems Disease [facility] Allergies, Adverse Reactions, Alerts Allergy Name Allergy Type Status Severity Reaction(s) Onset Date Inactive Date Treating Clinician Comments Source NO KNOWN ALLERGIE S Drug Class Active [facility] Social History Social Habit Start Date Stop Date Quantity Comments Source History of tobacco use Cigarette Smoker [facility] Exposure to SARS-CoV-2 (event) 2021-03-01 00:00:00 2021-03-31 17:46:00 Not sure [facility] Cigarettes smoked current (pack per day) - Reported 2021-03-31 00:00:00 2021-03-31 00:00:00 [facility] Tobacco use and exposure 2021-03-31 00:00:00 2021-03-31 00:00:00 Never used [facility] Sex Assigned At 1985 00:00[birth year]00 1985 00:00:00 [facility] Smoking Status Start Date Stop Date Source Tobacco smoking consumption unknown [facility] Current every day smoker 2021-03-31 00:00:00 [facility] Medications Ordered Medication Name Filled Medication Name Start Date Stop Date Current Medication? Ordering Clinician Indication Dosage Frequency Signature (SIG) Comments Components Source ketorolac (TORADOL) injection 30 mg 2020-05 01:15: 00 04-01 00:17 :00 [id number] [facility] tablet 2020-05 00:00: 00 Yes [id number] 5mg Take 1 tablet by mouth at bedtime. [facility] Tramadol HCl Tramadol HCl 10-21 00:00: 00 11-20 00:00 :00 No Ko Hackett as directed [facility] Vital Signs Vital Name Observation Time Observation Value Comments Carl montano Systolic blood pressure 2021-03-31 23:46:00 146 mm[Hg] [facility] Diastolic blood pressure 2021-03-31 23:46:00 84 mm[Hg] [facility] Body temperature 2021-03-31 23:46:00 36.89 [place] [facility] Respiratory rate 2021-03-31 23:46:00 20 /min [facility] Body height 2021-03-31 23:46:00 193 cm [facility] Body weight 2021-03-31 23:46:00 113.399 kg [facility] BMI 2021-03-31 23:46:00 30.43 kg/m2 [facility] Oxygen saturation in Arterial blood by Pulse oximetry 2021-03-31 23:46:00 99 /min [facility] Procedures Procedure Date / Time Performed Performing Clinicia n Source PATIENT QUESTIONNAIRE 2021-03-31 06:01:00 Doctor Unassigned, Boaz [facility] Encounters Start Date/Time End Date/Time Encounter Type Admission Type Attending Clinicians Care Facility Care Department Encounter ID Source 2021-03-31 17:40:45 2021-03-31 18:00:45 Urgent Care Jad Whyte [facility] [id number] [facility] 2021-03-31 17:40:00 2021-03-31 17:40:00 Outpatient JAD HIDALGO [facility] [id number] [facility] 2021-03-31 00:00:00 2021-03-31 00:00:00 Orders Only Doctor Unassigned, Boaz [facility] [id number] [facility] 2020-02-03 17:20:00 2020-02-03 17:20:00 Outpatient MAVERICK CAGE [facility] [id number] [facility] 2019-12-02 00:00:00 2019-12-02 00:00:00 Patient Secure Msg Doctor Unassigned, Boaz [facility] [id number] [facility] 2019-12-01 08:00:54 2019-12-01 08:20:54 Laboratory Only Lab, [facility] [id number] [facility] 2019-12-01 08:00:54 2019-12-01 08:20:54 Laboratory Only Lab, [facility] [id number] 2019-12-01 08:00:00 2019-12-01 08:00:00 [facility] [id number] 2019-12-01 00:00:00 2019-12-01 00:00:00 Letter (Out) Doctor Unassigned, Boaz [facility] [id number] [facility] 2019-12-01 00:00:00 2019-12-01 00:00:00 Letter (Out) Doctor Unassigned, Boaz [facility] [id number] 2018-11-18 09:00:00 2018-11-18 09:00:00 Outpatient [facility] [id number] [facility] 2018-10-21 09:00:00 2018-10-21 09:00:00 Outpatient [facility] [id number] [facility] 2018-10-17 10:30:00 2018-10-17 10:30:00 Outpatient [facility] [id number] [facility]
[2024-01-08] MEDS ORDERED: HYDROMORPHONE HCL 1 MG/ML INJ ONE (16:38)
[2024-01-08] MEDS ORDERED: ONDANSETRON 4 MG/2 ML VIAL ONE (16:38)
[2024-01-08] MEDS ORDERED: PANTOPRAZOLE 40 MG INJ ONE (16:39)
[2024-01-08] MEDS ORDERED: NA CHLORIDE 0.9% 1,000 ML ONE (16:39)
[2024-01-08 16:47] LABS: Absolute Basophils 0.1 K/uL (0-0.5); Absolute Eosinophils 0.1 K/uL (0-0.5); Absolute Monocytes 0.7 K/uL (0.1-1.3); Absolute Neutrophil 8.9 K/uL (1.8-8.0); Basophils % 0.7 % (0-1.3); Eosinophils % 0.7 % (0-4.4); Hematocrit 44.5 % (39.6-49.0); Hemoglobin 14.2 g/dL (13.6-17.9); Lymphocytes % 9.3 % (15.3-44.8); MCH 23.6 pg (27.0-35.0); MCV 73.9 fL (80-100); MPV 7.7 fL (7.6-11.3); Monocytes % 6.5 % (3.3-12.3); Neutrophils % 82.8 % (41.7-73.7); Platelets 296 thou/uL (152-406); RBC Red Blood Cell Count 6.03 M/uL (4.33-5.43); Red Cell Distribution Width 15.9 % (12.1-15.2)
[2024-01-08 16:49] LABS: PT Prothrombin Time 12.8 SECONDS (9.4-12.5); Protime INR 1.15
[2024-01-08 17:04] LABS: Albumin 4.6 g/dL (3.4-5.0); Albumin/Globulin Ratio 1.2 (1.1-1.8); Anion Gap 13.5 mEq/L (5.0-15.0); Bilirubin Direct 0.2 mg/dL (0-0.2); Bilirubin Indirect, Calculated 0.6 mg/dL (0.2-0.8); Bilirubin Total 0.8 mg/dL (0.2-1.0); Globulin 3.9 g/dL (2.3-3.5); Magnesium 2.1 mg/dL (1.6-2.4); Potassium 3.5 mEq/L (3.5-5.1); Protein, Total 8.5 g/dL (6.4-8.2)
[2024-01-08 17:15] LABS: Troponin High Sensitivity 68.3 pg/mL (<58.9)
--- NOTE | 2024-01-08 18:22 | RAD REPORT ---
EXAM DESCRIPTION: CT - Chest Abd Pelvis Wo Con - 01/08/2024 5:45 pm CLINICAL HISTORY: abd pain;Chest pain COMPARISON: Chest Single View dated 01/08/2024 TECHNIQUE: Thin axial CT images of the chest, abdomen, and pelvis, performed without IV contrast. Mu ltiplanar reformats were generated and reviewed. All CT scans are performed using dose optimization technique as appropriate and may include automated exposure control or mA/KV adjustment according to patient size. FINDINGS: The lungs are clear.No pleural or pericardial effusion.No intrathoracic adenopathy. The liver shows diffuse parenchymal hypoattenuation suggesting steatosis. Spleen, pancreas, adrenal g lands and kidneys are within normal limits. No bowel obstruction, free air, free fluid or abscess. Normal appendix. No pathologic lymphadenopath y in the abdomen or pelvis. No worrisome osseous finding. IMPRESSION: No acute findings. Diffuse hepatic parenchymal hypoattenuation suggesting steatosis.
--- NOTE | 2024-01-08 18:28 | RAD REPORT ---
EXAM DESCRIPTION: [place] Single View01/08/2024 5:05 pm CLINICAL HISTORY: vomiting COMPARISON: No comparisons TECHNIQUE: Portable AP view of the chest. FINDINGS: The lungs are clear. No pneumothorax or effusion. The cardiomediastinal contours are unre markable. IMPRESSION: No acute cardiopulmonary process.
[2024-01-08] MEDS ORDERED: PROMETHAZINE INJ 25 MG/ML AMP ONE (19:00)
[2024-01-08] MEDS ORDERED: FENTANYL CITR 100 MCG/2 ML ONE (19:00)
[2024-01-08 19:53] LABS: SARS-CoV-2 Antigen CONTROL BLUE LINE VIS/BG OK; SARS-CoV-2 Antigen Rapid Res Negative (Negative)
[2024-01-08 20:04] LABS: Specific Gravity 1.027 (1.005-1.030); Sqamous Epithelial <5 /HPF (None Seen); Urine Bacteria <20 /HPF (<20); Urine Bilirubin NEGATIVE (Negative); Urine Blood 1+ (Negative); Urine Clarity Extremely Turbid (Clear); Urine Color Yellow (Yellow); Urine Crystals Unidentified Moderate /HPF (None Seen); Urine Culture Reflex Order REFLEXED; Urine Glucose TRACE (Negative); Urine Granular Casts 0-5 /LPF (None Seen); Urine Ketones 1+ (Negative); Urine Micro Reflex YN NO BILL MICROSCOPIC; Urine Mucus 4+ /HPF (None Seen); Urine Nitrite NEGATIVE (Negative); Urine Protein 2+ (Negative); Urine Urobilinogen Normal (Normal); Urine pH 5.5 (5.0-7.0)
[2024-01-08 20:13] LABS: Barbiturates NEGATIVE (NEGATIVE); Benzodiazepines NEGATIVE (NEGATIVE); Cocaine NEGATIVE (NEGATIVE); METHAMPHETAM NEGATIVE (NEGATIVE); Methadone NEGATIVE (NEGATIVE); Opiates NEGATIVE (NEGATIVE); Phencyclidine NEGATIVE (NEGATIVE); THC Cannibis POSITIVE (NEGATIVE)
--- NOTE | 2024-01-08 20:14 | ER ---
Nurse's Notes [facility] Name: Beto Nava Age: 38 yrs Sex: Male : 1985 Arrival Date: 01/08/2024 Time: 15:52 Bed 16 Private MD: Diagnosis: Acute kidney failure, unspecified;Dehydration;Elevated troponin Presentation: 01/07 16:05 Chief complaint: Patient states: N/V DIARRHEA SINCE WEDNESDAY. WENT AWAY YESTERDAY AND db CAME BACK TODAY. WITH FLU LIKE SYMPTOMS. Coronavirus screen: Client denies travel out of the [place] in the last 14 days. At this time, the client does not indicate any symptoms associated with coronavirus-19. Ebola Screen: Patient negative for fever greater than or equal to 101.5 degrees Fahrenheit, and additional compatible Ebola Virus Disease symptoms Patient denies exposure to infectious person. Patient denies travel to an Ebola-affected area in the 21 days before illness onset. No symptoms or risks identified at this time. Initial Sepsis Screen: Does the patient meet any 2 criteria? No. Patient's initial sepsis screen is negative. Does the patient have a suspected source of infection? No. Patient's initial sepsis screen is negative. Risk Assessment: Do you want to hurt yourself or someone else? Patient reports no desire to harm self or others. Onset of symptoms was January 08, 2024. 16:05 Method Of Arrival: Ambulatory db 16:05 Acuity: LISA 3 db Triage Assessment: 16:11 General: Appears in no apparent distress. uncomfortable, Behavior is anxious. GI: db Reports diarrhea, nausea, vomiting. Historical: - Allergies: 16:11 No Known Allergies; db - Home Meds: 16:11 None [Active]; db - PMHx: 16:11 None; db - PSHx: 16:11 LEFT KNEE ACL; db - Immunization history:: Adult Immunizations unknown. - Infectious Disease History:: Denies. - Social history:: Smoking status: Patient reports the use of cigarette tobacco products, smokes one-half pack cigarettes per day. Screenin:25 [facility] ED Fall Risk Assessment (Adult) History of falling in the last 3 months, me1 including since admission No falls in past 3 months (0 pts) Confusion or Disorientation No (0 pts) Intoxicated or Sedated No (0 pts) Impaired Gait No (0 pts) Mobility Assist Device Used No (0 pt) Altered Elimination No (0 pt) Score/Fall Risk Level 0 - 2 = Low Risk Maintained a safe environment, Provided non-skid footwear, Hourly rounding (assess needs \T\ fall precautionary measures) done. Abuse screen: Denies threats or abuse. Nutritional screening: No deficits noted. Tuberculosis screening: No symptoms or risk factors identified. Assessment: 16:25 Pain: Complains of pain in abdomen Pain does not radiate. Pain currently is 8 out of 10 me1 on a pain scale. Quality of pain is described as crampy, Pain began 2-3 days ago. Is continuous. Neuro: Level of Consciousness is awake, alert, obeys commands, Oriented to person, place, time, situation, Appropriate for age. Cardiovascular: Patient's skin is warm and dry. Respiratory: Airway is patent Respiratory effort is even, unlabored, Respiratory pattern is regular, symmetrical. GI: Abdomen is round Pt is actively vomiting bile, Reports diarrhea, nausea, vomiting, since . : No signs and/or symptoms were reported regarding the genitourinary system. EENT: No signs and/or symptoms were reported regarding the EENT system. Derm: Skin is intact, is healthy with good turgor, Skin is pink, warm \T\ dry. Musculoskeletal: No signs and/or symptoms reported regarding the musculoskeletal system. 16:49 General: Appears uncomfortable, ill, well groomed, well developed, well nourished, me1 Behavior is calm, cooperative, appropriate for age, Reports N/V DIARRHEA SINCE WEDNESDAY. WENT AWAY YESTERDAY AND CAME BACK TODAY. WITH FLU LIKE SYMPTOMS. Vital Signs: 16:05 BP 158 / 121; Pulse 95; Resp 16; Temp 99.7; Pulse Ox 100% ; Weight 113.4 kg; Height 6 db ft. 4 in. ; 16:38 BP 166 / 111; Pulse 103; Resp 18; Pulse Ox 99% on R/A; me1 17:00 BP 152 / 104; Pulse 94; Resp 17; Pulse Ox 95% on R/A; me1 17:16 Pain 3/10; me1 18:00 BP 175 / 103; Pulse 86; Resp 16; Pulse Ox 96% on R/A; me1 19:00 BP 161 / 99; Pulse 88; Resp 16; Pulse Ox 96% on R/A; me1 20:00 BP 133 / 79; Pulse 92; Resp 16; Pulse Ox 96% on R/A; me1 20:49 BP 133 / 92; Pulse 109; Resp 18; Temp 98.8; Pulse Ox 97% ; me1 16:05 Body Mass Index 30.43 (113.40 kg, 193.04 cm) db 17:16 Pain Scale: Adult [facility] ED Course: 15:53 Patient arrived in ED. mr 16:04 Jaden Dahl PA is PHCP. cp 16:04 Jaden Alba MD is Attending Physician. cp 16:11 Triage completed. db 16:12 Arm band placed on Patient placed in an exam room. db 16:25 Patient has correct armband on for positive identification. Bed in low position. Call nh1 light in reach. Side rails up X2. Provided Education on: POC. Verbalized understanding. . Client placed on continuous cardiac and pulse oximetry monitoring. NIBP monitoring applied. napper tender on. Pulse ox on. NIBP on. 16:25 No provider procedures requiring assistance completed. me1 16:29 Kathrin Sutherland, RN is Primary Nurse. me1 16:36 Basic Metabolic Panel Sent. me1 16:36 CBC with Diff Sent. me1 16:36 LFT's Sent. me1 16:36 Magnesium Sent. me1 16:36 PT-INR Sent. me1 16:36 Troponin HS Sent. me1 16:37 Initial lab(s) drawn, by nh, sent to lab. Inserted saline lock: 22 gauge in left nh1 antecubital area, using aseptic technique. Blood collected. Flushed with 10 mL NS. 16:47 Lipase Sent. me1 16:50 EKG done, by social services technician. reviewed by Jaden Alba MD. oh1 17:07 XRAY Chest (1 view) In Process Unspecified. EDMS 17:11 PHCP role handed off by Jaden Dahl PA sb4 17:11 Emily Carr PA-C is PHCP. sb4 17:28 PHCP role handed off by Emily Carr PA-C cp 17:28 Jaden Dahl PA is PHCP. cp 17:42 PHCP role handed off by Jaden Dahl PA sb4 17:42 [facility] sb4 17:47 CT Chest Abdomen Pelvis W/O Contrast In Process Unspecified. EDMS 18:59 SARS RAPID Sent. me1 18:59 Flu Sent. me1 19:05 Flu Sent. me1 19:05 SARS RAPID Sent. me1 19:05 UDS Sent. me1 19:05 UAM Sent. me1 19:05 Urine collected: clean catch specimen, tea colored. me1 20:14 Sunitha Taylor MD is Hospitalizing Provider. sb4 20:54 Patient admitted, IV remains in place. me1 Administered Medications: 16:46 Drug: Pantoprazole IVP 40 mg IVP once Route: IVP; Site: left antecubital; me1 17:16 Follow up: Response: No adverse reaction me1 16:46 Drug: NS 0.9% IV 1000 ml IV at 1 bolus Per protocol Route: IV; Rate: 1 bolus; Site: me1 left antecubital; 20:36 Follow up: Response: No adverse reaction; IV Status: Completed infusion; IV Intake: me1 1000ml 16:46 Drug: Ondansetron IVP 4 mg IVP once; over 2 minutes Route: IVP; Site: left antecubital; me1 17:16 Follow up: Response: No adverse reaction; Nausea is decreased me1 16:46 Drug: HYDROmorphone IVP 1 mg IVP once Route: IVP; Site: left antecubital; me1 17:16 Follow up: Pain 3/10 Adult; Response: No adverse reaction; Pain is decreased me1 19:05 Drug: Promethazine IVP 12.5 mg IVP once Route: IVP; Site: left antecubital; me1 19:11 Follow up: Response: No adverse reaction; Nausea is decreased me1 19:05 Drug: fentaNYL (PF) IVP 50 mcg IVP once Route: IVP; Site: left antecubital; me1 19:11 Follow up: Response: No adverse reaction; Pain is decreased me1 Medication: 16:25 VIS not applicable for this client. me1 Intake: 20:36 IV: 1000ml; Total: 1000ml. me1 Outcome: 20:14 Decision to Hospitalize by Provider. sb4 20:54 Admitted to Med/surg accompanied by tech, via wheelchair, room 221, with chart, Report me1 called to faxed, receipt confirmed with [employer]. 20:55 Condition: stable me1 21:48 Patient left the ED. lg3 Signatures: Dispatcher [employer] ED Demi Vergara, Reg Reg mr NabilaJaden, Jackie Peña cp, RN RN lg3 Marisabel Gilmore, RN Emily Jim PAShoaib PAShoaib sb4 Kathrin Sutherland RN RN me1 Jacinta Holcomb oh1 Corrections: (The following items were deleted from the chart) 16:49 16:05 Chief complaint: Patient states: N/V DIARRHEA SINCE WEDNESDAY. WENT AWAY YESTERDAY me1 AND CAME BACK TODAY. WITH FLU LIKE SYMPTOMS db
--- NOTE | 2024-01-08 20:14 | EDPHYS ---
Physician Documentation [facility] Name: Beto Nava Age: 38 yrs Sex: Male : 1985 Arrival Date: 01/08/2024 Time: 15:52 Bed 16 Private MD: ED Physician Jaden Alba HPI: 01/06 16:25 This 38 yrs old Black Male presents to ER via Ambulatory with complaints of Vomiting, cp Weakness. 16:25 The patient presents to the emergency department with nausea, with "dry heaves", cp vomiting, that is intermittent. Onset: The symptoms/episode began/occurred 2-3 days ago. Possible causes: unknown. Associated signs and symptoms: Pertinent positives: abdominal pain, Pertinent negatives: constipation, diarrhea, fever. Severity of symptoms: in the emergency department the symptoms are unchanged despite home interventions. Historical: - Allergies: 01/07 16:11 No Known Allergies; db - Home Meds: 16:11 None [Active]; db - PMHx: 16:11 None; db - PSHx: 16:11 LEFT KNEE ACL; db - Immunization history:: Adult Immunizations unknown. - Infectious Disease History:: Denies. - Social history:: Smoking status: Patient reports the use of cigarette tobacco products, smokes one-half pack cigarettes per day. ROS: 16:30 Constitutional: Positive for poor PO intake, Negative for body aches, chills, fever, cp 16:30 Cardiovascular: Negative for chest pain, cp 16:30 Respiratory: Negative for cough, shortness of breath, wheezing, 16:30 Abdomen/GI: Positive for abdominal pain, nausea and vomiting, 16:30 Neuro: Negative for altered mental status, headache, Exam: 16:33 Constitutional: The patient appears in no acute distress, alert, awake, cp non-diaphoretic, non-toxic, well developed, well nourished, uncomfortable, 16:33 Head/Face: Normocephalic, atraumatic. cp 16:33 Eyes: Periorbital structures: appear normal, Conjunctiva: normal, no exudate, no injection, Sclera: no appreciated abnormality, Lids and lashes: appear normal, bilaterally, 16:33 ENT: External ear(s): are unremarkable, Nose: is normal, Mouth: Lips: moist, Oral mucosa: pink and intact, moist, Posterior pharynx: Airway: no evidence of obstruction, patent, 16:33 Chest/axilla: Inspection: normal, Palpation: is normal, no crepitus, no tenderness, 16:33 Cardiovascular: Rate: normal, Rhythm: regular, 16:33 Respiratory: the patient does not display signs of respiratory distress, Respirations: normal, no use of accessory muscles, no retractions, labored breathing, is not present, Breath sounds: are clear throughout, no decreased breath sounds, no stridor, no wheezing, 16:33 Abdomen/GI: Inspection: abdomen appears normal, Bowel sounds: active, all quadrants, Palpation: severe abdominal tenderness, in the epigastric area, rebound tenderness, is not appreciated, voluntary guarding, is elicited in the epigastric area, 16:33 Back: CVA tenderness, is absent, Vital Signs: 16:05 BP 158 / 121; Pulse 95; Resp 16; Temp 99.7; Pulse Ox 100% ; Weight 113.4 kg; Height 6 db ft. 4 in. ; 16:38 BP 166 / 111; Pulse 103; Resp 18; Pulse Ox 99% on R/A; me1 17:00 BP 152 / 104; Pulse 94; Resp 17; Pulse Ox 95% on R/A; me1 17:16 Pain 3/10; me1 18:00 BP 175 / 103; Pulse 86; Resp 16; Pulse Ox 96% on R/A; me1 19:00 BP 161 / 99; Pulse 88; Resp 16; Pulse Ox 96% on R/A; me1 20:00 BP 133 / 79; Pulse 92; Resp 16; Pulse Ox 96% on R/A; me1 20:49 BP 133 / 92; Pulse 109; Resp 18; Temp 98.8; Pulse Ox 97% ; me1 16:05 Body Mass Index 30.43 (113.40 kg, 193.04 cm) db 17:16 Pain Scale: Adult me1 MDM: 16:04 Patient medically screened. celi 20:13 Data reviewed: vital signs, nurses notes, lab test result(s), EKG, radiologic studies, sb4 and as a result, I will admit patient. Consideration of Admission/Observation Patient was admitted/placed on observation. Counseling: I had a detailed discussion with the patient and/or guardian regarding the historical points, exam findings, and any diagnostic results supporting the discharge/admit diagnosis, lab results, radiology results, the need for further work-up and treatment in the hospital. 01/07 16:23 Order name: Basic Metabolic Panel; Complete Time: 17:21 cp 01/07 16:23 Order name: CBC with Diff; Complete Time: 17:10 cp 01/07 16:23 Order name: LFT's; Complete Time: 17:21 cp 01/07 16:23 Order name: Magnesium; Complete Time: 17:21 cp 01/07 16:23 Order name: PT-INR; Complete Time: 17:10 cp 01/07 16:23 Order name: Troponin HS; Complete Time: 17:21 cp 01/07 16:23 Order name: Lipase; Complete Time: 17:21 cp 01/07 17:22 Order name: CK; Complete Time: 17:42 sb4 01/07 18:19 Order name: UAM; Complete Time: 20:06 sb4 01/07 18:19 Order name: UDS; Complete Time: 20:15 sb4 01/07 18:19 Order name: SARS RAPID; Complete Time: 19:59 sb4 01/07 18:19 Order name: Flu; Complete Time: 19:59 sb4 01/07 20:08 Order name: Urine Culture EDID 01/07 20:40 Order name: Magnesium EDID 01/07 20:40 Order name: Thyroid Stimulating Hormone; Complete Time: 21:37 EDMS 01/07 20:40 Order name: UR CREAT EDMS 01/07 20:40 Order name: UR SODIUM EDMS 01/07 20:40 Order name: CBC with Automated Diff EDMS 01/07 20:40 Order name: CBC with Automated Diff EDMS 01/07 20:40 Order name: Comprehensive Metabolic Panel EDMS 01/07 20:40 Order name: Comprehensive Metabolic Panel EDMS 01/07 20:40 Order name: Creatine Phosphokinase EDMS 01/07 20:40 Order name: Creatine Phosphokinase EDMS 01/07 20:40 Order name: Creatine Phosphokinase EDMS 01/07 20:40 Order name: Lipid Profile EDMS 01/07 20:40 Order name: Lipid Profile EDMS 01/07 16:23 Order name: XRAY Chest (1 view); Complete Time: 18:29 cp 01/07 17:22 Order name: CT Chest Abdomen Pelvis W/O Contrast; Complete Time: 18:24 sb4 01/07 20:40 Order name: CONS Physician Consult EDMS 01/07 20:40 Order name: CONS Physician Consult EDID 01/07 16:23 Order name: Cardiac monitoring; Complete Time: 16:52 cp 01/07 16:23 Order name: EKG - Nurse/Tech; Complete Time: 16:52 cp 01/07 16:23 Order name: IV Saline Lock; Complete Time: 16:36 cp 01/07 16:23 Order name: Labs collected and sent; Complete Time: 16:36 cp 01/07 16:23 Order name: O2 Per Protocol; Complete Time: 16:36 cp 01/07 16:23 Order name: O2 Sat Monitoring; Complete Time: 16:36 cp EC:23 Rate is 87 beats/min. Rhythm is regular, Sinus Rhythm. IA interval is normal at 128 sb4 msec. QRS interval is normal at 100 msec. QT interval is normal at 348 msec. No Q waves. Clinical impression: No evidence of ischemia. Interpreted by me. Reviewed by me. Administered Medications: 16:46 Drug: Pantoprazole IVP 40 mg IVP once Route: IVP; Site: left antecubital; me1 17:16 Follow up: Response: No adverse reaction me1 16:46 Drug: NS 0.9% IV 1000 ml IV at 1 bolus Per protocol Route: IV; Rate: 1 bolus; Site: [facility] left antecubital; 20:36 Follow up: Response: No adverse reaction; IV Status: Completed infusion; IV Intake: me1 1000ml 16:46 Drug: Ondansetron IVP 4 mg IVP once; over 2 minutes Route: IVP; Site: left antecubital; me1 17:16 Follow up: Response: No adverse reaction; Nausea is decreased me1 16:46 Drug: HYDROmorphone IVP 1 mg IVP once Route: IVP; Site: left antecubital; me1 17:16 Follow up: Pain 3/10 Adult; Response: No adverse reaction; Pain is decreased me1 19:05 Drug: Promethazine IVP 12.5 mg IVP once Route: IVP; Site: left antecubital; me1 19:11 Follow up: Response: No adverse reaction; Nausea is decreased me1 19:05 Drug: fentaNYL (PF) IVP 50 mcg IVP once Route: IVP; Site: left antecubital; me1 19:11 Follow up: Response: No adverse reaction; Pain is decreased me1 Disposition: 20:22 Chart complete. sb4 Disposition Summary: 01/08/24 20:14 Hospitalization Ordered Notes: Hospitalization Status: Observation sb4 Provider: Sunitha Taylor4 Location: Telemetry/MedSurg (observation) sb4 Condition: Fair sb4 Problem: new sb4 Symptoms: are unchanged sb4 Bed/Room Type: Standard sb4 Room Assignment: 221(01/08/24 20:45) sp Diagnosis - Acute kidney failure, unspecified sb4 - Dehydration sb4 - Elevated troponin sb4 Forms: - Medication Reconciliation Form sb4 - SBAR form sb4 - Leadership Thank You Letter sb4 Addendum: 01/15/2024 15:42 Co-signature as Attending Physician, Jaden Alba MD I agree with the assessment and c blanc plan of care. Signatures: Dispatcher [employer] EDJaden Owen MD MD cha Pinkerton, Shawna sp Page, Corey, PA PA cp Benton, Danielle, RN RN Emily Stevens PA-C PA-C sb4 Kathrin Sutherland, MESERET RN me1 Corrections: (The following items were deleted from the chart) 01/07 16:24 16:24 BASIC METABOLIC PANEL+C.LAB.BRZ ordered. EDMS EDMS 16:24 16:24 CBC+H.LAB.BRZ ordered. EDMS EDMS 16:24 16:24 HEPATIC FUNCTION+C.LAB.BRZ ordered. EDMS EDMS 16:24 16:24 MAGNESIUM+C.LAB.BRZ ordered. EDMS EDMS 16:24 16:24 PROTIME (+INR)+COAG.LAB.BRZ ordered. EDMS EDMS 16:24 16:24 Troponin High Sensitivity+C.LAB.BRZ ordered. EDMS EDMS 16:24 16:24 LIPASE+C.LAB.BRZ ordered. EDMS EDMS 16:24 16:24 Chest Single View+RAD.RAD.BRZ ordered. EDMS EDMS 17:23 17:23 Chest Abdomen Pelvis Wo Con+CT.RAD.BRZ ordered. EDMS EDMS 17:28 17:13 Abdomen Pelvis W Con+CT.RAD.BRZ ordered. EDMS EDMS 20:45 20:14 sb4 sp
--- NOTE | 2024-01-08 20:33 | P.HP ---
Certification for Inpatient Patient admitted to: Inpatient With expected LOS: >2 Midnights Patient will require the following post-hospital care: None Practitioner: I am a practitioner with admitting privileges, knowledge of patient current condition, hospital course, and medical plan of care. Services: Services provided to patient in accordance with Admission requirements found in Title 42 Section 412.3 of the Code of Federal Regulations Patient History Date of Service: 01/08/24 Reason for admission: Nausea vomiting diarrhea and weakness History of Present Illness: 38-year-old male with no past medical history presenting with nausea vomiting body aches malaise fever as well as diarrhea since the last 3 days. He admitted to intense crampy abdominal pain. He states he is still having intense vomiting. He states his diarrhea has been frequent but last episode was earlier this morning. He denies any cough or any sick contacts. He denies any dysuria or urinary frequency. He was seen in the emergency room yesterday and sent home after pain control. He presented again today because of worsening symptoms. On arrival in the ED today he was noted with tachycardia with rate up to 113, mildly febrile at 99.7, mild elevated blood pressure. CT of the abdomen pelvics as well as chest shows hepatic steatosis but otherwise no acute intra-abdominal findings. Urinalysis was positive for UTI, serum WBC was 10.5 but with 86% neutrophilia. BMP showed elevated creatinine of 2.6. Troponin was mildly elevated at 6.4. EKG shows normal sinus rhythm with no ST segment changes. Patient admits to history of tobacco use but denies any history of cardiac disease in the past. COVID screen was negative. Urine drug screen positive for THC Allergies No Known Allergies Allergy (Verified 02/06/15 14:34) Home Medications: NK [No Home Meds] 02/06/15 - Past Medical/Surgical History Diabetic: No -: dental caries -: L knee surgery 2003 - Family History Mother -: Hypertension - Social History Smoking Status: Light Tobacco smoker (1-9 cigarettes/day) Counseled patient to stop smoking for: less than 10 minutes Smoking therapy provided: Yes Patient receptive to therapy: Yes Alcohol use: Yes CD- Drugs: No Caffeine use: Yes Place of Residence: Home Review of Systems 10-point ROS is otherwise unremarkable Physical Examination - Physical Exam General: Alert, In no apparent distress, Oriented x3, Other (Acute ill looking) HEENT: Atraumatic, Normocephalic, PERRLA Neck: Supple, 2+ carotid pulse no bruit, JVD not distended Respiratory: Clear to auscultation bilaterally, Normal air movement Cardiovascular: No edema, Normal pulses, Regular rate/rhythm, Normal S1 S2 Gastrointestinal: Normal bowel sounds, Soft and benign, No ascites, No tenderness Integumentary: No rashes, No breakdown, No significant lesion Neurological: Normal speech, Normal strength at 5/5 x4 extr, Sensation intact, Cranial nerves 3-12 intact - Studies Laboratory Data (last 24 hrs) 01/08/24 01/08/24 01/08/24 16:35 16:35 16:35 WBC 10.70 Hgb 14.2 Hct 44.5 Plt Count 296 PT 12.8 H INR 1.15 Sodium 138 Potassium 3.5 BUN 26 H Creatinine 2.62 H Glucose 117 H Magnesium 2.1 Total Bilirubin 0.8 AST 19 ALT 34 Alkaline Phosphatase 77 Lipase 59 Microbiology Data (last 24 hrs): 01/08/24 18:57 Nasopharnyx Influenza Type A Antigen Screen - Final 01/08/24 18:57 Nasopharnyx Influenza Type B Antigen Screen - Final Assessment and Plan - Problems (Diagnosis) (1) UTI (urinary tract infection), bacterial Current Visit: Yes Status: Acute (2) ARF (acute renal failure) Onset Date: 02/07/15 Current Visit: No Status: Acute - Plan Impression Acute UTI Acute gastroenteritis Acute kidney injury Troponin elevationmay be due to renal failure Chronic tobacco use Plan Will admit patient to inpatient UTI/enteritisstart empirical antibiotics with cefepime and Flagyl Follow urine culture as well as blood culture Tylenol as needed for fever Monitor nausea and vomiting with antiemetics If recurrent diarrhea, obtain stool for ova and parasite Acute kidney injurystart gentle IV hydration with lactated Ringer Monitor creatinine trend May need nephrology consult in a.m. if not improving Elevated troponinserial set of cardiac enzymes Follow-up troponin level with improvement in renal function Low likelihood of acute coronary syndrome since normal EKG Cardiology notified in the emergency room Chronic tobacco usetobacco cessation advised Nicotine patch provided SCDs for DVT prophylaxis Total time spent in evaluation greater than 60 minutes. Discharge Plan: Home - Advance Directives Does patient have a Living Will: No Does patient have a Durable POA for Healthcare: No - Code Status/Comfort Care Code Status: Full Code Physician Review: Patient Assessed, Agree with Above Assessment and Plan Time Spent Managing Pts Care (In Minutes): 65
[2024-01-08] MEDS ORDERED: ACETAMINOPHEN 500 MG TAB PO PRN (20:34)
[2024-01-08] MEDS ORDERED: ALBUTEROL 2.5 MG/3 ML NEB SOL NEB PRN (20:34)
[2024-01-08] MEDS ORDERED: HYDRALAZINE HCL 20 MG/ML VIAL IV PRN (20:37)
[2024-01-08 22:07] VITALS: BMI 30.4
[2024-01-08] MEDS: FAMOTIDINE 20 MG/2 ML VIAL IV SCH (22:30)
[2024-01-08] MEDS: CEFEPIME 1 GM in NA CHLORIDE 0.9% 100 ML IV SCH (22:30)
[2024-01-08] MEDS: D5 0.9 NS 1,000 ML IV SCH (22:30)
[2024-01-08] MEDS: ONDANSETRON 4 MG/2 ML VIAL IV ONE (22:36)
[2024-01-08] MEDS: ONDANSETRON 4 MG/2 ML VIAL IV PRN (22:39)
[2024-01-08] MEDS: MORPHINE 2 MG/ML SYR IV PRN (22:58)
[2024-01-09] MEDS: HYDROMORPHONE HCL 2 MG/ML inj IV PRN (00:05)
[2024-01-09] MEDS: METRONIDAZOLE 500mg IVPB 500 MG/100 ML BAG IV SCH (00:05)
[2024-01-09 06:30] LABS: Absolute Lymphocytes (CBC) 3.1 K/uL (0.7-4.9); Absolute Monocytes 1.4 K/uL (0.1-1.3); Basophils % 0.4 % (0-1.3); Eosinophils % 0.2 % (0-4.4); Hemoglobin 12.5 g/dL (13.6-17.9); Lymphocytes % 29.6 % (15.3-44.8); MCH 23.8 pg (27.0-35.0); MCHC 32.1 g/dL (32.0-36.0); MCV 73.9 fL (80-100); MPV 7.4 fL (7.6-11.3); Monocytes % 12.8 % (3.3-12.3); Nucleated Red Blood Cells % 0.1 % (0-0); Platelets 274 thou/uL (152-406); RBC Red Blood Cell Count 5.28 M/uL (4.33-5.43); Red Cell Distribution Width 15.3 % (12.1-15.2)
[2024-01-09 06:48] LABS: Albumin 3.6 g/dL (3.4-5.0); Albumin/Globulin Ratio 1.1 (1.1-1.8); Anion Gap 9.4 mEq/L (5.0-15.0); Bilirubin Total 0.7 mg/dL (0.2-1.0); Globulin 3.3 g/dL (2.3-3.5); Magnesium 2.2 mg/dL (1.6-2.4); Potassium 3.4 mEq/L (3.5-5.1); Protein, Total 6.9 g/dL (6.4-8.2)
[2024-01-09] MEDS: ZINC SULFATE 220 MG CAP PO SCH (08:02)
[2024-01-09] MEDS: NICOTINE 21 MG/PAT TD SCH (08:02)
[2024-01-09 09:04] VITALS: O2SAT 98
--- NOTE | 2024-01-09 14:05 | P.DS ---
Admission Date: 01/08/24 Discharge Date: 01/09/24 Disposition: ROUTINE DISCHARGE Reason for Admission: Nausea vomiting diarrhea and weakness Brief History of Present Illness: 38-year-old male with no past medical history presenting with nausea vomiting body aches malaise fever as well as diarrhea since the last 3 days. He admitted to intense crampy abdominal pain. He states he is still having intense vomiting. He states his diarrhea has been frequent but last episode was earlier this morning. He denies any cough or any sick contacts. He denies any dysuria or urinary frequency. He was seen in the emergency room yesterday and sent home after pain control. He presented again today because of worsening symptoms. On arrival in the ED today he was noted with tachycardia with rate up to 113, mildly febrile at 99.7, mild elevated blood pressure. CT of the abdomen pelvics as well as chest shows hepatic steatosis but otherwise no acute intra-abdominal findings. Urinalysis was positive for UTI, serum WBC was 10.5 but with 86% neutrophilia. BMP showed elevated creatinine of 2.6. Troponin was mildly elevated at 6.4. EKG shows normal sinus rhythm with no ST segment changes. Patient admits to history of tobacco use but denies any history of cardiac disease in the past. COVID screen was negative. Urine drug screen positive for THC - Physical Exam General: Alert, In no apparent distress, Oriented x3, Other (Acute ill looking) HEENT: Atraumatic, Normocephalic, PERRLA Neck: Supple, 2+ carotid pulse no bruit, JVD not distended Respiratory: Clear to auscultation bilaterally, Normal air movement Cardiovascular: No edema, Normal pulses, Regular rate/rhythm, Normal S1 S2 Gastrointestinal: Normal bowel sounds, Soft and benign, No ascites, No tenderness Integumentary: No rashes, No breakdown, No significant lesion Neurological: Normal speech, Normal strength at 5/5 x4 extr, Sensation intact, Cranial nerves 3-12 intact Hospital Course: 38-year-old male with no past medical history presenting with nausea vomiting body aches malaise fever as well as diarrhea since the last 3 days. He admitted to intense crampy abdominal pain. He states he is still having intense vomiting. He states his diarrhea has been frequent but last episode was earlier this morning. He denies any cough or any sick contacts. He denies any dysuria or urinary frequency. He was noted to have acute kidney injury likely from secondary prerenal dehydration. Treated with IV fluids, elevated troponin 68, mild UTI, no reported dysuria. He is tolerating diet, stable to discharge home, follow-up with PCP in 1 week Assessment Elevated troponin Rhabdomyolysis, elevated CK-treated with IV fluids Gastroenteritis -treated with IV fluids, as needed antiemetics, treated with Flagyl-symptoms improved, tolerating diet-recommend to advance diet as tolerated UTI-treated with cefepime, discharged home on p.o. antibiotic dehydration acute renal failure secondary to prerenal nausea vomiting-treated with IV fluids, as needed antiemetics Tobacco use-educated on tobacco cessation Urine drug screen positive for THC educate on cessation Chest x-ray IMPRESSION: No acute cardiopulmonary process CT of the abdomen pelvis IMPRESSION: No acute findings.Diffuse hepatic parenchymal hypoattenuation suggesting steatosis Continue home medicines as previously prescribed GOAL: Clear understanding of disease process INSTRUCTIONS: Physician Discharge Instructions: -Follow-up with PCP in 1 to 2 weeks -Please call Dr. Lawrence at [phone] if any questions regarding hospital stay -Please call nursing station at [phone] if any nursing or medication questions -Return to the emergency room if symptoms worsen Diet: ADA, low sodium Activity: Fall precautions Vital Signs/Physical Exam: Temp Pulse Resp BP Pulse Ox 98.2 F 91 H 16 147/84 H 98 01/09/24 12:00 01/09/24 12:00 01/09/24 12:00 01/09/24 12:00 01/09/24 12:00 Laboratory Data at Discharge: WBC 10.60 thou/uL (4.3-10.9) 01/09/24 06:12 Hgb 12.5 g/dL (13.6-17.9) L D 01/09/24 06:12 Hct 39.0 % (39.6-49.0) L 01/09/24 06:12 Plt Count 274 thou/uL (152-406) 01/09/24 06:12 PT 12.8 SECONDS (9.4-12.5) H 01/08/24 16:35 INR 1.15 01/08/24 16:35 Sodium 137 mEq/L (136-145) 01/09/24 06:12 Potassium 3.4 mEq/L (3.5-5.1) L 01/09/24 06:12 BUN 23 mg/dL (7-18) H 01/09/24 06:12 Creatinine 1.65 mg/dL (0.70-1.30) H 01/09/24 06:12 Glucose 115 mg/dL (74-106) H 01/09/24 06:12 Magnesium 2.2 mg/dL (1.6-2.4) 01/09/24 06:12 Total Bilirubin 0.7 mg/dL (0.2-1.0) 01/09/24 06:12 AST 14 U/L (15-37) L 01/09/24 06:12 ALT 26 U/L (16-61) 01/09/24 06:12 Alkaline Phosphatase 61 U/L (45-117) D 01/09/24 06:12 Triglycerides 97 mg/dL (<150) 01/09/24 06:12 Cholesterol 182 mg/dL (<200) 01/09/24 06:12 HDL Cholesterol 43 mg/dL (40-60) 01/09/24 06:12 Cholesterol/HDL Ratio 4.23 01/09/24 06:12 Lipase 59 U/L (13-75) 01/08/24 16:35 Home Medications: NK [No Home Meds] 02/06/15 Diet: AHA Activity: Fall precautions Followup: NONE,NONE [Primary Care Provider] - Time spent managing pt's care (in minutes): 55
[2024-01-09 14:55] LABS: Albumin 3.7 g/dL (3.4-5.0); Albumin/Globulin Ratio 1.1 (1.1-1.8); Anion Gap 7.7 mEq/L (5.0-15.0); Bilirubin Total 0.9 mg/dL (0.2-1.0); Globulin 3.3 g/dL (2.3-3.5); Troponin High Sensitivity 23.2 pg/mL (<58.9)
[2024-01-09 15:01] LABS: Potassium 4.7 mEq/L (3.5-5.1)
--- NOTE | 2024-01-09 15:41 | P.CNS ---
Date of Consult: 01/09/24 Reason for Consult: MARIXA Requesting Physician: kervin mireles Chief Complaint: Nausea vomiting diarrhea and weakness History of Present Illness: 38M w/ no PMHx nausea, vomiting, abdominal pain, fever, and diarrhea for the past [address] of the abdomen and pelvis showed fatty liver but otherwise unremarkable. Urinalysis showed leukocytosis. Covid screen negative. Urine drug screen positive for THC. He is referred to nephrology for MARIXA. SCr 2.6 on admission. He received IV fluids. Serum creatinine improved to 1.6. Allergies No Known Allergies Allergy (Verified 02/06/15 14:34) Home Medications: NK [No Home Meds] 02/06/15 - Past Medical/Surgical History Diabetic: No -: dental caries -: L knee surgery 2003 - Family History Mother Medical History: Hypertension - Social History Smoking Status: Current every day smoker Alcohol use: Yes CD- Drugs: No Caffeine use: Yes Place of Residence: Home Review of Systems General: Fever, Malaise Eyes: Unremarkable ENT: Unremarkable Cardiovascular: Unremarkable Gastrointestinal: Nausea, Abdominal Pain, Diarrhea Genitourinary: Unremarkable Musculoskeletal: Unremarkable Integumentary: Unremarkable Lymphatics: Unremarkable Physical Examination Temp Pulse Resp BP Pulse Ox 98.2 F 91 H 16 147/84 H 98 01/09/24 12:00 01/09/24 12:00 01/09/24 12:00 01/09/24 12:00 01/09/24 12:00 General: In no apparent distress HEENT: Atraumatic, Normocephalic Neck: Supple, JVD not distended Respiratory: Other (symmetric chest expansion) Cardiovascular: No rubs, No murmurs Gastrointestinal: Soft and benign, No rebound Musculoskeletal: No clubbing Integumentary: No warmth Neurological: Normal speech, Normal tone Urinary: Other (No bladder distention) External genitalia: Deferred Rectal: Deferred Laboratory Data (last 24 hrs) 01/08/24 01/08/24 01/08/24 16:35 16:35 16:35 WBC 10.70 Hgb 14.2 Hct 44.5 Plt Count 296 PT 12.8 H INR 1.15 Sodium 138 Potassium 3.5 BUN 26 H Creatinine 2.62 H Glucose 117 H Magnesium 2.1 Total Bilirubin 0.8 AST 19 ALT 34 Alkaline Phosphatase 77 Lipase 59 Conclusions/Impression: # MARIXA 2/2 prerenal state SCr 2.6 on admission, improved to 1.6 today CPK not sig elevated Resume IV hydration [place] by mouth fluid intake Monitor renal panel # UTI Urinalysis showed hematuria, rhinorrhea, pyuria Empiric antibiotics Follow-up urine culture # Acute gastroenteritis Per primary team
--- NOTE | 2024-01-09 16:35 | P.PN ---
Date of Service: 01/09/24 Subjective no reported chest pain,shortness of breath or abdominal pain Review of Systems 10-point ROS is otherwise unremarkable Physical Examination - Physical Exam General: Alert, In no apparent distress, Oriented x3, no acute distress no HEENT: Atraumatic, Normocephalic, PERRLA Neck: Supple, 2+ carotid pulse no bruit, JVD not distended Respiratory: Clear to auscultation bilaterally, Normal air movement Cardiovascular: No edema, Normal pulses, Regular rate/rhythm, Normal S1 S2 Gastrointestinal: Normal bowel sounds, Soft and benign, No ascites, No tenderness Integumentary: No rashes, No breakdown, No significant lesion Neurological: Normal speech, Normal strength at 5/5 x4 extr, Sensation intact, Cranial nerves 3-12 intact Assessment and Plan - Problems (Diagnosis) UTI (urinary tract infection), bacterial IV fluids, IV antibiotics, send cultures Rhabdomyolysis IV fluids, trend CK Gastroenteritis IV fluids, as needed antiemetics ARF (acute renal failure) IV fluids, nephrology consult elevated troponin Trend troponin tobacco use Educated on tobacco cessation Urine drug screen positive for THC Educated on cessation recreational drug use - Plan Will admit patient to inpatient UTI/enteritisstart empirical antibiotics with cefepime and Flagyl Follow urine culture as well as blood culture Tylenol as needed for fever Monitor nausea and vomiting with antiemetics If recurrent diarrhea, obtain stool for ova and parasite Acute kidney injurystart gentle IV hydration with lactated Ringer Monitor creatinine trend May need nephrology consult in a.m. if not improving Elevated troponinserial set of cardiac enzymes Follow-up troponin level with improvement in renal function Low likelihood of acute coronary syndrome since normal EKG Cardiology notified in the emergency room Chronic tobacco usetobacco cessation advised Nicotine patch provided SCDs for DVT prophylaxis Total time spent in evaluation greater than 60 minutes. Discharge Plan: Home - Advance Directives Does patient have a Living Will: No Does patient have a Durable POA for Healthcare: No - Code Status/Comfort Care Code Status: Full Code Physician Review: Patient Assessed, Agree with Above Assessment and Plan Time Spent Managing Pts Care (In Minutes): 30 <Svetlana Kennedy - Last Filed: 01/09/24 18:01> Chart has been reviewed. Events of the last 24 hours have been noted. Case discussed with THERESA. I performed a substantial part of the MDM during this patient's care today. I personally made or approved the documented management plan and acknowledge its risk of complications. I agree with the findings and documentation provided in the THERESA's notes.Continue with antibiotic therapy. <Atul Lawrence - Last Filed: 01/14/24 03:33>
[2024-01-09] MEDS: NA CHLORIDE 0.9% 1,000 ML IV SCH (16:42)
--- NOTE | 2024-01-10 11:11 | P.CNS ---
Date of Consult: 01/10/24 Chief Complaint: Nausea vomiting diarrhea and weakness History of Present Illness: Patient presented with weakness, diarrhea, decrease PO intake, cardiology was consulted for troponin elevation, denies any cardiac symptoms, no chest pain, no SOB, no palpitations, no syncope Allergies No Known Allergies Allergy (Verified 02/06/15 14:34) Home medications list reviewed: Yes Home Medications: NK [No Home Meds] 02/06/15 - Past Medical/Surgical History Diabetic: No -: dental caries -: L knee surgery 2003 - Family History Mother Medical History: Hypertension - Social History Smoking Status: Current every day smoker Alcohol use: Yes CD- Drugs: No Caffeine use: Yes Place of Residence: Home Review of Systems 10-point ROS is otherwise unremarkable Physical Examination Temp Pulse Resp BP Pulse Ox 98.0 F 78 16 165/101 H 100 01/10/24 08:00 01/10/24 08:00 01/10/24 08:00 01/10/24 08:00 01/10/24 08:00 General: Alert, In no apparent distress HEENT: Atraumatic, PERRLA, Mucous membr. moist/pink, EOMI, Sclerae nonicteric Neck: Supple, 2+ carotid pulse no bruit, No LAD, Without JVD or thyroid abnormality Respiratory: Clear to auscultation bilaterally, Normal air movement Cardiovascular: Regular rate/rhythm, Normal S1 S2 Gastrointestinal: Normal bowel sounds, No tenderness Musculoskeletal: No tenderness Integumentary: No rashes Neurological: Normal gait, Normal speech, Normal tone, Normal affect Lymphatics: No axilla or inguinal lymphadenopathy - Problems (1) Type 2 GA (myocardial infarction) Current Visit: Yes Status: Acute Plan: Troponin elevation is mild, no chest pain, with elevated CK and MARIXA Continue hydration, no further cardiac work up needed.
--- NOTE | 2024-01-10 15:27 | PN ---
Date of Progress Note: 01/10/2024 Chief Complaint: Acute kidney injury. Subjective: The patient presented to the hospital with nausea, vomiting, diarrhea, and generalized w eakness. He is a 38-year-old with no past medical history. He presented to the hospital with abdomi nal pain, fever, and diarrhea for the past 3 days associated with nausea and vomiting. CT scan of th e abdomen and pelvis showed fatty liver, but otherwise unremarkable. There is no evidence of obstruc tive uropathy. Urinalysis showed leukocyturia. COVID screen is negative. Drug screen was positive for THC. Acute kidney injury was found on admission. Serum creatinine was 2.6. The patient receive d IV fluids for volume depletion. Serum creatinine level is stabilizing. Acute kidney injury has no t really resolved and the patient has nonoliguric urine output. Review of Systems: Denies fever, chills, chest pain, palpitation, syncope. Objective: Lungs: Clear to auscultation bilaterally. Heart: S1, S2. Abdomen: Soft, benign. Extremities: No edema. Laboratory Work: Sodium 138, potassium 3.5, BUN 26, creatinine 2.62, glucose 117, magnesium 2.1. Li pase 59, AP 77, AST 19, ALT 34. Impression And Plan: 1.Acute kidney injury with prerenal state. Serum creatinine level was up to 2.6 on admission and im proved to 1.6. Monitor renal function. Continue IV hydration and p.o. intake. CPK is not significa ntly elevated. Does not correspond with rhabdomyolysis. Monitor magnesium and phosphorus. 2.Urinary tract infection. Urinalysis show hematuria, pyuria. The patient will continue antibiotic s. The patient will need to follow up with Urology for hematuria. 3.Acute gastritis, per Primary team. 4.Generalized weakness. Continue IV fluids for volume depletion. EB/MODL Voice ID: [id number] Report ID: [id number]
--- NOTE | 2024-01-10 16:10 | P.DS ---
Admission Date: 01/08/24 Discharge Date: 01/10/24 Disposition: ROUTINE DISCHARGE Discharge Condition: GOOD Reason for Admission: Nausea vomiting diarrhea and weakness Brief History of Present Illness: 38-year-old male with no past medical history presenting with nausea vomiting body aches malaise fever as well as diarrhea since the last 3 days. He admitted to intense crampy abdominal pain. He states he is still having intense vom iting. He states his diarrhea has been frequent but last episode was earlier this morning. He denies any cough or any sick contacts. He denies any dysuria or urinary frequency. He was seen in the emergency room yesterday and sent home after pain control. He presented again today because of worsening symptoms. On arrival in the ED today he was noted with tachycardia with rate up to 113, mildly febrile at 99.7, mild elevated blood pressure. CT of the abdomen pelvics as well as chest shows hepatic steatosis but otherwise no acute intra-abdominal findings. Urinalysis was positive for UTI, serum WBC was 10.5 but with 86% neutrophilia. BMP showed elevated creatinine of 2.6. Troponin was mildly elevated at 6.4. EKG shows normal sinus rhythm with no ST segment changes. Patient admits to history of tobacco use but denies any history of cardiac disease in the past. COVID screen was negative. Urine drug screen positive for THC Hospital Course: Pt is a 38yo male with past medical history of tobacco abuse who presented with nausea, vomiting, abdominal pain, body aches, malaise, fever, and diarrhea for 3 days. Of note, pt was recently seen in the ER and sent home after pain control but the symptoms progressively worsened. On admission, lab studies show evidence of UTI and MARIXA. We admitted pt for dehydration, rhabdomyolysis and acute enteritis. We gave IVF and monitored renal function. Renal function improved and he received cefepime for UTI. UDS was positive for THC. He was advised pt to drink water and avoid salty food. Pt was in NAD prior to discharge. Vital Signs/Physical Exam: Temp Pulse Resp BP Pulse Ox 97.9 F 81 18 165/95 H 99 01/10/24 12:00 01/10/24 12:00 01/10/24 12:10 01/10/24 12:00 01/10/24 12:10 Laboratory Data at Discharge: WBC 10.60 thou/uL (4.3-10.9) 01/09/24 06:12 Hgb 12.5 g/dL (13.6-17.9) L D 01/09/24 06:12 Hct 39.0 % (39.6-49.0) L 01/09/24 06:12 Plt Count 274 thou/uL (152-406) 01/09/24 06:12 PT 12.8 SECONDS (9.4-12.5) H 01/08/24 16:35 INR 1.15 01/08/24 16:35 Sodium 136 mEq/L (136-145) 01/09/24 14:15 Potassium 4.7 mEq/L (3.5-5.1) D 01/09/24 14:15 BUN 19 mg/dL (7-18) H 01/09/24 14:15 Creatinine 1.60 mg/dL (0.70-1.30) H 01/09/24 14:15 Glucose 103 mg/dL (74-106) 01/09/24 14:15 Magnesium 2.2 mg/dL (1.6-2.4) 01/09/24 06:12 Total Bilirubin 0.9 mg/dL (0.2-1.0) 01/09/24 14:15 AST 39 U/L (15-37) H 01/09/24 14:15 ALT 37 U/L (16-61) 01/09/24 14:15 Alkaline Phosphatase 63 U/L (45-117) 01/09/24 14:15 Triglycerides 97 mg/dL (<150) 01/09/24 06:12 Cholesterol 182 mg/dL (<200) 01/09/24 06:12 HDL Cholesterol 43 mg/dL (40-60) 01/09/24 06:12 Cholesterol/HDL Ratio 4.23 01/09/24 06:12 Lipase 59 U/L (13-75) 01/08/24 16:35 Home Medications: Nicotine [Nicoderm*] 21 mg TD DAILY 42 Days #42 tab 01/10/24 levoFLOXacin [Levaquin] 750 mg PO DAILY 3 Days #3 tab 01/10/24 metroNIDAZOLE [Flagyl] 500 mg PO Q8H 5 Days #15 tab 01/10/24 New Medications: metroNIDAZOLE [Flagyl] 500 mg PO Q8H 5 Days #15 tab levoFLOXacin [Levaquin] 750 mg PO DAILY 3 Days #3 tab Nicotine [Nicoderm*] 21 mg TD DAILY 42 Days #42 tab Physician Discharge Instructions: 38-year-old male with no past medical history presenting with nausea vomiting body aches malaise fever as well as diarrhea since the last 3 days. He admitted to intense crampy abdominal pain. He states he is still having intense vomiting. He states his diarrhea has been frequent but last episode was earlier this morning. He denies any cough or any sick contacts. He denies any dysuria or urinary frequency. He was noted to have acute kidney injury likely from secondary prerenal dehydration. Treated with IV fluids, elevated troponin 68, mild UTI, no reported dysuria. He is tolerating diet, stable to discharge home, follow-up with PCP in 1 week Assessment Elevated troponin Rhabdomyolysis, elevated CK-treated with IV fluids Gastroenteritis -treated with IV fluids, as needed antiemetics, treated with Flagyl-symptoms improved, tolerating diet-recommend to advance diet as tolerated UTI-treated with cefepime, discharged home on p.o. antibiotic dehydration acute renal failure secondary to prerenal nausea vomiting-treated with IV fluids, as needed antiemetics Tobacco use-educated on tobacco cessation Urine drug screen positive for THC educate on cessation Chest x-ray IMPRESSION: No acute cardiopulmonary process CT of the abdomen pelvis IMPRESSION: No acute findings.Diffuse hepatic parenchymal hypoattenuation suggesting steatosis Continue home medicines as previously prescribed GOAL: Clear understanding of disease process INSTRUCTIONS: Physician Discharge Instructions: -Follow-up with PCP in 1 to 2 weeks -Please call Dr. Lawrence at [phone] if any questions regarding hospital stay -Please call nursing station at [phone] if any nursing or medication questions -Return to the emergency room if symptoms worsen Diet: ADA, low sodium Activity: Fall precautions Diet: AHA Activity: Ad tammy Followup: NONE,NONE [Primary Care Provider] - Bry Delvalle MD [ACTIVE - CAN ADMIT] -
[2024-01-10 16:52] VITALS: BP 152/94; TEMP 98.1
--- NOTE | 2024-01-10 17:03 | EKG ---
Test Date: 2024-01-08 Test Time: 16:47:55 Metal Trimmer: MITA MEASUREMENT RESULTS: Intervals: Rate: 87 ND: 128 QRSD: 100 QT: 348 QTc: 418 [place]: P: -30 ND: 128 QRS: 55 T: -52 INTERPRETIVE STATEMENTS: Unusual P axis, possible ectopic atrial rhythm ST & T wave abnormality, consider inferior ischemia Abnormal ECG No previous ECG available for comparison Electronically Signed On 01-10-24 16:59:53 CDT by Bry Delvalle
== END 2024-01-10 16:30 | disposition home or self-care (01) | DRG 682 ==
LOC: ER 15:52 → ERHOLD 20:34 → 2ND 20:54
PROVIDERS: ADMIT Internal Medicine; ATTEND Hospitalist
DX: N17.9 Acute kidney failure, unspecified (principal); I21.A1 Myocardial infarction type 2; M62.82 Rhabdomyolysis; N39.0 Urinary tract infection, site not specified; K52.9 Noninfective gastroenteritis and colitis, unspecified; E86.0 Dehydration; K76.0 Fatty (change of) liver, not elsewhere classified; F17.210 Nicotine dependence, cigarettes, uncomplicated; R31.9 Hematuria, unspecified; R79.89 Other specified abnormal findings of blood chemistry; Z11.52 Encounter for screening for COVID-19
CPT/HCPCS: 36415; 71045; 71250; 74176; 80048; 80053; 80061; 80076; 80307; 81001; 82550; 82570; 83690; 83735; 84300; 84443; 84484; 85025; 85610; 87086; 87088; 87804; 87811; 93005; 96361; 96374; 96375; 99285; J0692; J1170; J2270; J2405; J2470; J2550; J3010; J7030; J7042